=== PATIENT | female | born 1990 | race Two or more races ===

== ENCOUNTER 2023-07-01 20:54 | Emergency (ER) | payer BC, MEDICAID ==
[~2023-07-01] VITALS: Ht 157.5 cm; Wt 80.7 kg
[2023-07-01] MEDS ORDERED: IBUPROFEN 600 MG TABLET ONE (21:56)
[2023-07-01] MEDS: IBUPROFEN 600 MG TABLET PO ONE (21:59)
[2023-07-01 22:22] LABS: BASOPHILS # (AUTO) 0.2 K/UL (0.0-0.2); EOSINOPHILS # (AUTO) 0.1 K/uL (0.0-0.7); EOSINOPHILS % (AUTO) 1.4 % (0.0-7.0); HEMATOCRIT 34.4 % (31.2-41.9); HEMOGLOBIN 11.6 g/dL (10.9-14.3); LYMPHOCYTES # (AUTO) 1.6 K/uL (0.8-4.8); LYMPHOCYTES % (AUTO) 29.2 % (20.5-51.5); MEAN CORPUSCULAR HEMOGLOBIN 28.8 uug (24.7-32.8); MEAN CORPUSCULAR HGB CONC 34 g/dL (32.3-35.6); MEAN CORPUSCULAR VOLUME 85.5 fL (75.5-95.3); MONOCYTES # (AUTO) 0.3 K/uL (0.1-1.30); MONOCYTES % (AUTO) 5.5 % (0.0-11.0); NEUTROPHILS # (AUTO) 3.4 K/uL (1.8-8.9); NEUTROPHILS % (AUTO) 60.9 % (38.5-71.5); PLATELET COUNT (AUTO) 147 K/uL (179-408); RED BLOOD CELL COUNT(AUTO) 4.03 MIL/uL (3.63-4.92); RED CELL DISTRIBUTION WIDTH 13.8 % (12.3-17.7); WHITE BLOOD COUNT (AUTO) 5.6 K/uL (3.8-11.8)
[2023-07-01 22:26] LABS: DIFFERENTIAL COMMENT 1
[2023-07-01 22:35] LABS: ALBUMIN 3.8 g/dL (3.4-5.0); BILIRUBIN,DIRECT 0.2 mg/dL (0.0-0.2); BILIRUBIN,TOTAL 0.5 mg/dL (0.2-1.0); CALCIUM 8.6 mg/dL (8.5-10.1); CREATININE 0.6 mg/dL (0.6-1.3); POTASSIUM 3.6 mmol/L (3.5-5.1); TOTAL PROTEIN, SERUM 7.3 g/dL (6.4-8.2)
[2023-07-01 23:33] VITALS: BP 130/85; TEMP 98.6; O2SAT 99
== END 2023-07-01 23:33 | disposition home or self-care (01) ==
LOC: ER 20:55
DX: O20.0 Threatened abortion (principal); R10.2 Pelvic and perineal pain; Z98.890 Other specified postprocedural states
CPT/HCPCS: 36415; 76856; 85025; 85730; 86850; 86900; 86901; A4606; A4663